=== PATIENT | female | born 1975 | race Two or more races ===

== ENCOUNTER → 2024-04-30 | Outpatient (CLI) | payer BC, SELFPAY ==
--- NOTE | 2024-04-30 13:15 | XR_ITS ---
Examination: Screening digital mammography, bilateral Computer aided detection 3-D breast Tomosynthesis, bilateral Date and time of exam: April 30, 2024 1312 hours Indication: Screening Technique: Nonmagnified MLO, CC views of the breasts to been obtained, reconstructed from 3-D Tomosynthesis images. R2 computer aided detection program utilized for evaluation of suspicious masses and/or abnormal calcifications. 3-D Tomosynthesis images obtained. Findings: The breasts are heterogeneously dense, which may obscure small masses Grouped microcalcifications in linear distribution upper outer left breast 8 mm focal asymmetry upper right breast MLO view 3.1 cm from the nipple Impression: BI-RADS Category 0: Incomplete: Need additional imaging evaluation Grouped microcalcifications in linear distribution upper outer left breast, recommend magnification spot compression views and left breast sonography follow-up 8 mm focal asymmetry upper right breast MLO view, 3.1 cm from the nipple, recommend follow-up spot tomographic views upper outer quadrant right breast right breast sonography to complete the workup
== END | disposition home or self-care (01) ==
LOC: CDIM 12:59
PROVIDERS: Referring Provider Nurse Practitioner Family; Visit Provider Nurse Practitioner Family
DX: Z12.31 Encounter for screening mammogram for malignant neoplasm of breast (principal); R92.8 Other abnormal and inconclusive findings on diagnostic imaging of breast; R92.0 Mammographic microcalcification found on diagnostic imaging of breast; N64.89 Other specified disorders of breast
CPT/HCPCS: 77063; 77067

== ENCOUNTER → 2024-06-12 | Outpatient (CLI) | payer BC, SELFPAY ==
[2024-06-12 09:19] LABS: Basophils # (Auto) 0.1 Thou/mm3 (0.0-0.2); Basophils % (Auto) 1 % (0-2.5); Eosinophils # (Auto) 0.2 Thou/mm3 (0.0-0.5); Eosinophils % (Auto) 3 % (0-10); Hematocrit 42.1 % (36.0-46.0); Hemoglobin 14.3 g/dL (12.0-16.0); Immature Granulocytes % (Auto) 0 % (0-0); Immature Granulocytes Auto 0.01 Thou/mm3 (0.00-0.00); Lymphocytes # (Auto) 2.9 Thou/mm3 (1.0-4.8); Lymphocytes % (Auto) 47 % (10-50); Mean Corpuscular Hemoglobin 30.8 pg (25.0-35.0); Mean Corpuscular Volume 91 fL (80-100); Monocytes # (Auto) 0.4 Thou/mm3 (0.0-0.8); Monocytes % (Auto) 7 % (0-12); Neutrophils # (Auto) 2.6 Thou/mm3 (1.8-7.7); Neutrophils % (Auto) 42 % (37-80); Nucleated Red Blood Cell % 0 /100 WBC (0); Platelet Count 236 Thou/mm3 (140-440); RDW Standard Deviation 43.8 fL (36.4-46.3); Red Blood Count 4.64 Miln/mm3 (4.00-5.20); White Blood Count 6.1 Thou/mm3 (3.6-11.0)
[2024-06-12 09:54] LABS: Alanine Aminotransferase 123 U/L (10-49); Albumin, Serum 4.6 gm/dL (3.5-5.0); Alkaline Phosphatase 110 U/L (46-116); Anion Gap 9 (7-16); Aspartate Amino Transferase 67 U/L (0-34); BUN/Creatinine Ratio 17 Ratio (12-20); Bilirubin,Direct 0.2 mg/dL (0.0-0.3); Bilirubin,Total 0.6 mg/dL (0.3-1.2); Blood Urea Nitrogen 12 mg/dL (9-23); Calcium 9.8 mg/dL (8.3-10.6); Carbon Dioxide 28.3 mMol/L (20.0-31.0); Cardiac Risk Estimate 3.7 RATIO (3.7-5.6); Chloride 104 mMol/L (98-107); Cholesterol 208 mg/dL (132-200); Creatinine (Component) 0.7 mg/dL (0.6-1.3); Free T4 (Free Thyroxine) 1.02 ng/dL (0.89-1.76); Glucose 94 mg/dL (74-106); HDL Cholesterol 56 mg/dL (40-60); LDL Cholesterol,Calculated 117 mg/dL (0-130); Osmolality,Calculated 280 (275-295); Sodium 141 mMol/L (136-145); Thyroid Stimulating Hormone 2.45 uIU/mL (0.55-4.78); Total Protein 7.4 gm/dL (5.7-8.2); Triglycerides 177 mg/dL (30-150); eGFR > 60 See Note
== END | disposition home or self-care (01) ==
LOC: COPL 07:55
PROVIDERS: PCP Nurse Practitioner Family; Referring Provider Internal Medicine Cardiovascular Disease; Visit Provider Internal Medicine Cardiovascular Disease
DX: I10 Essential (primary) hypertension (principal); E78.5 Hyperlipidemia, unspecified; R01.1 Cardiac murmur, unspecified
CPT/HCPCS: 36415; 80048; 80061; 80076; 84439; 84443; 85025

== ENCOUNTER → 2024-06-21 | Outpatient (CLI) | payer BC, SELFPAY ==
--- NOTE | 2024-06-21 07:15 | XR_ITS ---
Examination: Breast ultrasound complete, bilateral Date and time of exam: June 21, 2024 0742 hours INDICATIONS: Mammogram April 30, 2024 with microcalcifications upper outer left breast 8 mm focal asymmetry upper right breast MLO view Technique: Real-time grayscale ultrasonographic imaging bilateral breasts, including all 4 quadrants as well as nipple retroareolar and axillary regions. Findings: Sonographic images right breast 2:00 cyst 6 x 5 mm No solid nodules Sonographic images left breast 3:00 oval mass circumscribed 10 x 2 x 7 mm 11:00 oval mass circumscribed 5 x 3 x 5 mm IMPRESSION: BI-RADS Category 3: Probably benign findings Recommend 1 additional 6 month left breast sonogram follow-up to document stability of solid left breast nodules described above
--- NOTE | 2024-06-21 08:15 | XR_ITS ---
Examination: Diagnostic digital mammography, bilateral Computer aided detection 3-D breast Tomosynthesis, bilateral Date and time of exam: June 21, 2024 at 0732 hrs. Indications: Mammogram April 30, 2024 grouped microcalcifications upper outer left breast, 8 mm focal asymmetry upper right breast MLO view, 3.1 cm from the nipple Technique: Nonmagnified MLO, CC views of the breasts to been obtained, reconstructed from 3-D Tomosynthesis images. R2 computer aided detection program utilized for evaluation of suspicious masses and/or abnormal calcifications. 3-D Tomosynthesis images obtained. Findings: The breasts are heterogeneously dense, which may obscure small masses Suspicious microcalcifications are confirmed upper outer left breast Probably benign focal asymmetry upper right breast MLO view Impression: BI-RADS Category 4: Suspicious for malignancy Suspicious microcalcifications confirmed upper outer left breast, biopsy is needed to exclude breast carcinoma, these calcifications are amenable to stereotactic breast biopsy for diagnosis Recommend 6 month right mammogram follow-up to document stability of focal asymmetry upper right breast MLO view.
== END | disposition home or self-care (01) ==
LOC: CDIM 07:14
PROVIDERS: PCP Nurse Practitioner Family; Referring Provider Nurse Practitioner Family; Visit Provider Nurse Practitioner Family
DX: R92.343 Mammographic extreme density, bilateral breasts (principal); R92.0 Mammographic microcalcification found on diagnostic imaging of breast; N64.89 Other specified disorders of breast
CPT/HCPCS: 76641; 77062; 77066; G0279

== ENCOUNTER → 2024-08-29 | Outpatient (CLI) | payer BC, SELFPAY ==
[2024-08-27 16:58] LABS: Basophils % (Auto) 0 % (0-2.5); Eosinophils # (Auto) 0.1 Thou/mm3 (0.0-0.5); Eosinophils % (Auto) 2 % (0-10); Hematocrit 39.9 % (36.0-46.0); Hemoglobin 13.5 g/dL (12.0-16.0); Immature Granulocytes % (Auto) 0 % (0-0); Immature Granulocytes Auto 0.02 Thou/mm3 (0.00-0.00); Lymphocytes % (Auto) 44 % (10-50); Mean Corpuscular HGB Conc 33.8 g/dl (31.0-37.0); Mean Corpuscular Hemoglobin 30.9 pg (25.0-35.0); Mean Corpuscular Volume 91 fL (80-100); Monocytes # (Auto) 0.6 Thou/mm3 (0.0-0.8); Monocytes % (Auto) 9 % (0-12); Neutrophils % (Auto) 44 % (37-80); Nucleated Red Blood Cell % 0 /100 WBC (0); Platelet Count 254 Thou/mm3 (140-440); RDW Standard Deviation 44.9 fL (36.4-46.3); Red Blood Count 4.37 Miln/mm3 (4.00-5.20); White Blood Count 6.7 Thou/mm3 (3.6-11.0)
[2024-08-27 17:17] LABS: Partial Thromboplastin Time 27.7 Seconds (22.0-36.0); Prothrombin Time 10.9 Seconds (9.0-12.2)
[2024-08-27 18:45] LABS: HCG,Qualitative Serum Negative
--- NOTE | 2024-08-29 08:30 | XR_ITS ---
Examination: Stereotactic guided vacuum assisted left breast biopsy with clip placement Specimen radiograph Date and time of exam:August 29, 2024 0942 hours INDICATIONS: Suspicious microcalcifications upper outer left breast on mammogram June 21, 2024 Timeout performed, documenting correct patient, order, referring physician, patient's site and reason for procedure, allergies to medications Informed consent provided. Time out performed Technique: The lesion left breast was localized with a stereotactic apparatus. Local anesthesia was obtained after prepping the skin at the entrance site and applying sterile drape Maximum sterile barrier technique. 4 core biopsies were then obtained, vacuum assisted, stereotactically guided, at the lesion site. Specimens appear adequate. Stereotactic breast marker was introduced at the lesion site Estimated blood loss 2 cc. Patient tolerated the procedure well and appeared in satisfactory and stable condition at completion of the procedure Pathology report to follow Impression: Successful stereotactic breast biopsy as described above. Specimen radiograph contains the biopsied suspicious microcalcifications.
== END | disposition home or self-care (01) ==
LOC: CDIM 08-30 07:33
PROVIDERS: Radiology Diagnostic Radiology; PCP Nurse Practitioner Family; Referring Provider Nurse Practitioner Family; Visit Provider Nurse Practitioner Family
DX: D24.2 Benign neoplasm of left breast (principal); N60.12 Diffuse cystic mastopathy of left breast; R92.0 Mammographic microcalcification found on diagnostic imaging of breast; Z01.812 Encounter for preprocedural laboratory examination
CPT/HCPCS: 19081; 36415; 84703; 85025; 85610; 85730; A4648; A4649

== ENCOUNTER → 2024-09-04 | Outpatient (CLI) | payer BC, SELFPAY ==
[2024-09-04 10:54] LABS: Alanine Aminotransferase 182 U/L (10-49); Albumin, Serum 4.6 gm/dL (3.5-5.0); Alkaline Phosphatase 97 U/L (46-116); Aspartate Amino Transferase 107 U/L (0-34); Bilirubin,Direct 0.2 mg/dL (0.0-0.3); Bilirubin,Total 0.7 mg/dL (0.3-1.2); Cardiac Risk Estimate 3.5 RATIO (3.7-5.6); Cholesterol 227 mg/dL (132-200); HDL Cholesterol 64 mg/dL (40-60); LDL Cholesterol,Calculated 137 mg/dL (0-130); Total Protein 7.5 gm/dL (5.7-8.2); Triglycerides 130 mg/dL (30-150)
== END | disposition home or self-care (01) ==
LOC: COPL 08:47
PROVIDERS: PCP Nurse Practitioner Family; Referring Provider Internal Medicine Cardiovascular Disease; Visit Provider Internal Medicine Cardiovascular Disease
DX: I10 Essential (primary) hypertension (principal); E78.5 Hyperlipidemia, unspecified
CPT/HCPCS: 36415; 80061; 80076

== ENCOUNTER → 2025-03-03 | Outpatient (CLI) | payer BC, SELFPAY ==
[2025-03-03 09:57] LABS: Collection Type, Urine Clean Catch
[2025-03-03 10:18] LABS: Basophils # (Auto) 0.1 Thou/mm3 (0.0-0.2); Basophils % (Auto) 1 % (0-2.5); Eosinophils # (Auto) 0.2 Thou/mm3 (0.0-0.5); Eosinophils % (Auto) 3 % (0-10); Hematocrit 43.1 % (36.0-46.0); Hemoglobin 14.3 g/dL (12.0-16.0); Immature Granulocytes Auto 0.01 Thou/mm3 (0.00-0.00); Lymphocytes # (Auto) 2.3 Thou/mm3 (1.0-4.8); Lymphocytes % (Auto) 45 % (10-50); Mean Corpuscular HGB Conc 33.2 g/dl (31.0-37.0); Mean Corpuscular Hemoglobin 31.2 pg (25.0-35.0); Mean Corpuscular Volume 94 fL (80-100); Monocytes # (Auto) 0.4 Thou/mm3 (0.0-0.8); Monocytes % (Auto) 8 % (0-12); Neutrophils # (Auto) 2.2 Thou/mm3 (1.8-7.7); Neutrophils % (Auto) 43 % (37-80); Nucleated Red Blood Cell # 0.00 Thou/mm3 (0.00-0.00); Nucleated Red Blood Cell % 0 /100 WBC (0); Platelet Count 233 Thou/mm3 (140-440); RDW Standard Deviation 46.0 fL (36.4-46.3); Red Blood Count 4.58 Miln/mm3 (4.00-5.20); White Blood Count 5.1 Thou/mm3 (3.6-11.0)
[2025-03-03 10:27] LABS: Bilirubin,Urine Negative (Negative); Blood,Urine 1+ (Negative); Clarity,Urine Clear (Clear/Hazy); Color,Urine Lt-Yellow (Lt Yel-Yel); Culture Indicated,Urine Not Indicated; Glucose, Urine Negative (Negative); Ketones,Urine Negative (Negative); Leukocyte Esterase,Urine Positive (Negative); Nitrite,Urine Negative (Negative); PH,Urine 6.0 (5.0-7.0); Protein,Urine Negative (Neg - Trace); RBC,Urine 2 /hpf (0-3); Specific Gravity,Urine 1.021 (1.001-1.035); Squamous Epithelial Cell,Urine < 1 /hpf (0-5); Urobilinogen,Urine Negative mg/dL (0.0-1.0); WBC,Urine 1 /hpf (0-5)
[2025-03-03 10:31] LABS: Creatinine MALB Rnd Ur 136 mg/dL (30-125); Microalbumin Creat Ratio 6 mg/gCrea (<30); Microalbumin, Random Urine 8 mg/L (0-300)
[2025-03-03 10:39] LABS: Alanine Aminotransferase 183 U/L (10-49); Albumin, Serum 4.6 gm/dL (3.5-5.0); Albumin/Globulin Ratio 1.6 (1.2-2.2); Alkaline Phosphatase 86 U/L (46-116); Anion Gap 10 (7-16); Aspartate Amino Transferase 109 U/L (0-34); BUN/Creatinine Ratio 11 Ratio (12-20); Bilirubin,Direct 0.1 mg/dL (0.0-0.3); Bilirubin,Total 0.6 mg/dL (0.3-1.2); Blood Urea Nitrogen 9 mg/dL (9-23); Calcium 9.9 mg/dL (8.3-10.6); Calcium (Corrected) 9.9 mg/dL (8.5-10.1); Carbon Dioxide 29.1 mMol/L (20.0-31.0); Cardiac Risk Estimate 3.2 RATIO (3.7-5.6); Chloride 105 mMol/L (98-107); Cholesterol 226 mg/dL (132-200); Creatinine (Component) 0.8 mg/dL (0.6-1.3); Free T4 (Free Thyroxine) 1.08 ng/dL (0.89-1.76); Globulin 2.8 gm/dL (2.3-3.5); Glucose 99 mg/dL (74-106); HDL Cholesterol 70 mg/dL (40-60); LDL Cholesterol,Calculated 132 mg/dL (0-130); Osmolality,Calculated 285 (275-295); Potassium 4.0 mMol/L (3.4-5.1); Sodium 144 mMol/L (136-145); Thyroid Stimulating Hormone 2.17 uIU/mL (0.55-4.78); Total Protein 7.4 gm/dL (5.7-8.2); Triglycerides 119 mg/dL (30-150); eGFR > 60 See Note
[2025-03-03 10:44] LABS: Vitamin B12 670 pg/mL (211-911); Vitamin D 25 Hydroxy Total 20.3 ng/mL (7.3-40.2)
[2025-03-03 10:54] LABS: Syphilis Nonreactive (Nonreactive)
[2025-03-03 11:25] LABS: Glucose Estimated Average 120 mg/dL (80-131); Hemoglobin A1C 5.8 % Hgb (4.8-6.0)
[2025-03-03 15:31] LABS: Chlamydia trachomatis PCR Negative (Not Detect); Neisseria Gonorrhoeae DNA PCR Negative (Not Detect); Trichomonas Negative (Negative)
[2025-03-05 19:49] LABS: HCV RNA, PCR <15 NOT DETECTED IU/mL; Hepatitis B Virus DNA* NOT DETECTED
[2025-03-06 06:29] LABS: HCV RNA, PCR Log IU <1.18 NOT DETECTED Log IU/mL; HIV Ag/Ab, 4th Gen NON-REACTIVE; Hepatitis B DNA PCR NOT DETECTED Log IU/mL
== END | disposition home or self-care (01) ==
LOC: COPL 09:12
PROVIDERS: PCP Family Medicine; Referring Provider Internal Medicine Cardiovascular Disease; Visit Provider Internal Medicine Cardiovascular Disease
DX: I49.9 Cardiac arrhythmia, unspecified (principal); E78.5 Hyperlipidemia, unspecified; R74.8 Abnormal levels of other serum enzymes; Z13.29 Encounter for screening for other suspected endocrine disorder; Z13.0 Encounter for screening for diseases of the blood and blood-forming organs and certain disorders involving the immune mechanism; Z13.89 Encounter for screening for other disorder; Z11.3 Encounter for screening for infections with a predominantly sexual mode of transmission; Z11.59 Encounter for screening for other viral diseases; Z13.21 Encounter for screening for nutritional disorder
CPT/HCPCS: 36415; 80053; 80061; 81001; 82043; 82248; 82306; 82570; 82607; 83036; 84439; 84443; 85025; 86780; 87389; 87491; 87517; 87522; 87591; 87661